=== PATIENT | female | born 1955 | race African-American/Black ===

== ENCOUNTER 2018-10-09 07:22 | Day surgery (SDC) | payer BC ==
[~2018-10-09] VITALS: Ht 167.6 cm; Wt 91.9 kg
[~2018-10-09 07:22] MED LIST: ASPI-817 PO; LISI10TA2 PO; METF500T24 PO; RANI150T35 PO
[2018-10-09 07:54] VITALS: Ht 167.6 cm; Wt 91.9 kg
--- NOTE | 2018-10-09 08:16 | PREAC ---
Date/Time of Note Date/Time of Note DATE: 10/09/18 TIME: 08:15 Anesthesia Eval and Record Evaluation Time Pre-Procedure Interview DATE: 10/09/18 TIME: 08:15 Age 63 Sex female NPO: 8 hrs Preoperative diagnosis gerd Planned procedure egd Past Medical History Past Medical History: Includes Cardio: HTN Endo: Diabetes Pulm: Sleep Apnea GI: Obesity Surgery & Anesthesia Issues No known issue Meds Anticoagulation: No Beta Sabrina within 24 hr: No Reason Beta Sabrina not given: Pt. not on B-Sabrina Reported Medications Aspirin* (Aspirin* EC) 81 Mg Tablet.dr, 81 MG PO DAILY, TAB 10/09/18 Ranitidine Hcl* (Zantac*) 150 Mg Tablet, 150 MG PO HS, #30 TAB 10/09/18 Lisinopril* (Lisinopril*) 10 Mg Tablet, 10 MG PO DAILY, #30 TAB 10/09/18 Metformin Hcl* (Metformin Hcl*) 500 Mg Tablet, 500 MG PO BID, #30 TAB 10/09/18 Meds reviewed: Yes Allergies Coded Allergies: No Known Allergy (Unverified , 10/09/18) Allergies Reviewed: Yes Labs/Studies Labs Reviewed: Reviewed by anesthesiologist test: Negative Pre-procedure Exam Airway: Adequate mouth opening, Adequate thyromental dist Mallampati: Mallampati II Teeth: Normal Lung: Normal Heart: Normal ASA Physical Status ASA physical status: 3 Emergency: None Planned Anesthetic General/MAC: Mask, MAC Pre-operative Attestations Prior to commencing anesthesia and surgery, the patient was re-evaluated, there was verification of: *The patient's identity *The results of appropriate recent lab work and preoperative vital signs *The above evaluation not changing prior to induction *Anesthetic plan, risk benefits, alternative and complications discussed with patient/family; questions answered; patient/family understands, accepts and wishes to proceed. MATY CISNEROS Oct 09, 2018 08:16
[2018-10-09 08:19] VITALS: BP 132/72; PULSE 73; RESP 25
[2018-10-09] MEDS ORDERED: PROPOFOL 40 ML ONE (08:24)
[2018-10-09 09:11] VITALS: BP 130/75; RESP 14
--- NOTE | 2018-10-10 13:33 | PAC ---
Date/Time of Note Date/Time of Note DATE: 10/10/18 TIME: 13:33 Post-Anesthesia Notes Post-Anesthesia Note Last documented vital signs Vital Signs Date Temp Pulse Resp B/P (MAP) Pulse Ox O2 O2 Flow FiO2 Time Delivery Rate 10/09/18 14 130/75 99 Room Air 09:11 (93) 10/09/18 97.6 73 08:19 Activity: WNL Respiratory function: WNL Cardiovascular function: WNL Mental status: Baseline Pain reasonably controlled: Yes Hydration appropriate: Yes Nausea/Vomiting absent: Yes MATY CISNEROS Oct 10, 2018 13:33
== END 2018-10-09 12:35 | disposition home or self-care (01) ==
LOC: GIL 07:22
PROVIDERS: ATTEND Internal Medicine Gastroenterology
DX: D13.2 Benign neoplasm of duodenum (principal); K29.50 Unspecified chronic gastritis without bleeding; E11.9 Type 2 diabetes mellitus without complications; I10 Essential (primary) hypertension; Z79.84 Long term (current) use of oral hypoglycemic drugs
CPT/HCPCS: 43239; 82962; 88305; 88312; Z7610